=== PATIENT | female | born 2000 | race Caucasian/White ===

== ENCOUNTER 2022-06-20 10:10 | Outpatient (CLI) | payer MEDICAID, SELFPAY | END 2022-06-20 10:11 | disposition home or self-care (01) | LOC: FRMREF 06-23 14:25 | PROVIDERS: PCP Physician Assistant Medical; Visit Provider Physician Assistant Medical | DX: Z01.419 Encounter for gynecological examination (general) (routine) without abnormal findings (principal); Z13.6 Encounter for screening for cardiovascular disorders; Z11.3 Encounter for screening for infections with a predominantly sexual mode of transmission; Z13.29 Encounter for screening for other suspected endocrine disorder | CPT/HCPCS: 80053; 80061; 84443; 86592; 86703; 86706; 86803; 87340; 87491; 87591 ==

== ENCOUNTER 2022-07-07 14:05 | Emergency (ER) | payer MEDICAID, SELFPAY ==
[2022-07-07] VITALS (8 sets, daily range): BP systolic 117–148; BP diastolic 81–97; PULSE 78–97; RESP 16; TEMP 36.4; O2SAT 97–100; BMI 28.2
--- NOTE | 2022-07-07 14:44 | CRLHL7_ITS ---
For Patients: As a result of the Century Cures Act, medical imaging exams and procedure reports are released immediately into your electronic medical record. You may view this report before your referring provider. If you have questions, please contact your health care provider. INDICATION: Chest pain, elevated heart rate. TECHNIQUE: CT chest PE was acquired with 95 mL Isovue 370 IV contrast. Coronal and sagittal reformats were generated. COMPARISON: None. FINDINGS: Pulmonary arteries: The quality of enhancement of the pulmonary arteries is adequate. No filling defects to suggest pulmonary emboli. No findings of pulmonary artery hypertension. Thyroid: Unremarkable. Thoracic lymph nodes: No enlarged supraclavicular, mediastinal, hilar, or axillary lymph nodes. Mediastinum and esophagus: Unremarkable. Soft tissue density in the superior mediastinum is likely residual thymus. Heart and vasculature: Unremarkable. Lungs: Unremarkable. Pleura: Unremarkable. Chest wall: Unremarkable. Upper abdomen: No acute or significant findings. Bones: Unremarkable for age. IMPRESSION: 1. No pulmonary embolism. 2. Clear lungs. Please note that all CT scans at this facility use dose modulation, iterative reconstruction, and/or weight-based dosing when appropriate to reduce radiation dose to as low as reasonably achievable. Dictated by Marcos Colindres MD @ 07/07/2022 4:06:54 PM (Electronically Signed)
--- NOTE | 2022-07-07 14:46 | ED_ITS ---
HPI - General Adult General Time Seen by Provider: 14:47 Date Seen: 07/07/22 Chief complaint: Chest Pain Stated complaint: Chest pain elevated heartrate Time Seen by Provider: 07/07/22 14:37 Source: patient Mode of arrival: ambulatory Limitations: no limitations History of Present Illness HPI narrative: 21-year-old female who comes in today with chest pain and palpitations starting last night. She describes central pressure in her chest but she also says this feels ?hot? but not like heartburn. It is been fairly constant, does not seem worse when she lays down or sits up, does not seem worse with eating or drinking. She took Excedrin for this earlier with no improvement. She also feels like her heart is going fast and her watch, which has a heart rate sensor, indicates the heart rate is been around 100, patient says her normal heart rate in the 60s. She denies shortness of breath, cough, fever, chills, nausea, vomiting. She did notice some blood on the toilet paper on the outside the stool today, no abdominal pain. Related Data Home Medications Medication Instructions Recorded Confirmed No Known Home Medications 06/20/22 06/20/22 Allergies Allergy/AdvReac Type Severity Reaction Status Date / Time seasonal Allergy Mild Congestion, Uncoded 06/20/22 09:58 nasal drainage Review of Systems Status of ROS: Reports: 10 or more systems reviewed and unremarkable except as noted in History and below [facility] Surgical History (Updated 04/25/22 @ 10:52 by Pavel Carver) History of tonsillectomy Family History (Updated 04/25/22 @ 10:53 by Pavel Carver) Mother Depression Family/Other Depression Social History Smoking Status: Never smoker Do you use any of these nicotine containing products: None Second hand tobacco smoke exposure: No How often do you have a drink containing alcohol: 2-4 times a month How many standard drinks containing alcohol do you have on a typical day: 3 or 4 AUDIT-C Alcohol total score: 3 Non-prescribed substance use: marijuana (any form) service: No Exam Narrative: Exam Narrative: General: Well-developed and well-nourished, no acute distress Head: Atraumatic and normocephalic Eyes: Pupils are equal reactive, extraocular motions intact, conjunctiva clear ENT: External nose and ears are normal, posterior pharynx without erythema or exudate Neck: No midline cervical tenderness, full spontaneous range of motion the neck, trachea midline, no adenopathy Heart: Regular rate and rhythm no murmurs or thrills Lungs: Clear to auscultation bilaterally without wheezes or crackles Abdomen: Soft, nontender, nondistended with active bowel sounds Musculoskeletal: No tenderness, deformity, or edema Neurologic: Awake, alert, and oriented x3, no gross focal neurologic deficits, cranial nerves intact as tested Psych: Mood and affect are appropriate Skin: No rashes Const: Vital Signs, click to edit/add: Vital Signs - 24 hr 07/07/22 14:38 07/07/22 15:00 07/07/22 14:37 Temperature 97.6 F Pulse Rate [Pulse Oximeter] 95 86 97 Respiratory Rate 16 Blood Pressure [Le ft Upper Arm] 147/87 H 117/91 H 147/87 H Pulse Oximetry 100 100 100 Oxygen Delivery Me thod Room Air Room Air Room Air Course Course Hospital Course: Patient seen and examined, prior records reviewed. Differential diagnosis includes but not limited to electrolyte disturbance, dehydration, pericarditis, myocarditis, pulmonary embolism, pneumonia, pneumothorax, pneumomediastinum. Patient with substernal chest pain and fast heart rate. No lightheadedness or dizziness, no shortness of breath. On exam, heart rate is between 95 and 105 at rest, oxygen saturation 100%. Lungs are clear. Due to recent COVID and tachycardia, PE study is ordered. EKG and labs ordered to evaluate for pericarditis as well. Reevaluation(s) Reevaluation #1: EKG is reassuring, troponin is normal, pericarditis/myocarditis unlikely. CT scan is pending. Sign out to oncoming provider. If CT PE protocol is negative, patient can be discharged with outpatient follow-up. Time: 15:58 Vital Signs Vital signs: Initial Vital Signs Pulse Rate 97 07/07/22 14:37 Blood Pressure 147/87 H 07/07/22 14:37 Blood Pressure Mean 107 07/07/22 14:37 Blood Pressure Position Supine 07/07/22 14:37 Pulse Oximetry 100 07/07/22 14:37 Oxygen Delivery Method 07/07/22 14:37 Vital Signs Pulse Rate 97 07/07/22 14:37 Blood Pressure 147/87 H 07/07/22 14:37 Pulse Oximetry 100 07/07/22 14:37 Oxygen Delivery Method 07/07/22 14:37 Temperature 97.6 F 07/07/22 14:38 Pulse Rate 86 07/07/22 15:00 Respiratory Rate 16 07/07/22 14:38 Blood Pressure 117/91 H 07/07/22 15:00 Pulse Oximetry 100 07/07/22 15:00 Oxygen Delivery Method 07/07/22 15:00 Medical Decision Making Medical Records Medical records reviewed: Yes I reviewed the patient's medical records Lab Data Lab results reviewed: Yes I reviewed the patient's lab results Labs: Lab Results 07/07/22 07/07/22 07/07/22 Range/Units 15:02 15:02 15:02 WBC 10.94 (4.50-11.00) K/uL RBC 4.32 (4.00-5.20) m/uL Hgb 13.7 (12.0-16.0) gm/dL Hct 41.1 (33.0-51.0) % MCV 95 (80-100) fL MCH 32 (26-34) pg MCHC 33 (32-36) gm/dL RDW Coeff of Rayna 11.3 L (11.5-15.5) % Plt Count 362 (140-440) K/uL Neut % (Auto) 70.7 (42.0-72.0) % Lymph % (Auto) 19.4 L (20-44) % [place] % (Auto) 7.5 (0.0-11.0) % Eos % (Auto) 1.4 (0.0-7.0) % Baso % (Auto) 0.5 (0.0-3.0) % Neut # (Auto) 7.75 H (1.7-7.0) K/uL Lymph # (Auto) 2.10 (0.90-2.90) K/uL [place] # (Auto) 0.80 (0.00-0.90) K/UL Eos # (Auto) 0.15 (0.00-0.50) K/uL Baso # (Auto) 0.05 (0.00-0.30) K/uL Abs Immat Gran (auto) 0.05 (0.00-0.30) K/uL Sodium 139 (135-149) mmol/L Potassium 3.7 (3.6-5.1) mmol/L Chloride 103 (96-114) mmol/L Carbon Dioxide 25 (20-32) mmol/L BUN 9 (5-24) mg/dL Creatinine 0.6 (0.5-1.5) mg/dL Estimated Creat Clear 144.23 Estimated GFR 131 ml/min Glucose 110 (60-115) mg/dL Calcium 9.7 (8.4-10.6) mg/dL C-Reactive Protein < 0.5 L (0.5-1.0) mg/dL POC Troponin I 0.00 L (0.01-0.04) ng/ml Imaging Data CT scan - chest: Attestation: I have reviewed the pertinent imaging results. ECG Data Attestation: I personally reviewed and interpreted this ECG as follows: Prior ECG tracings: not available for review Interpretation: Performed at 2:48 p.m. demonstrates normal sinus rhythm rate 93, no acute ST elevations or depressions, normal intervals, normal axis, QTC 410, NH 146. No prior for comparison Discharge Plan Discharge Clinical Impression: Heart palpitations, Atypical chest pain Patient Disposition: Home, Self-Care Condition: Stable Instructions: Chest Pain (DC), Heart Palpitations (DC) Additional Instructions: Liquid diet for 24 hours. Avoid caffeinated beverages and alcohol. Follow-up with your primary care doctor this week. Activity Level: Activity as Tolerated Discharge Diet: Regular Prescriptions: No Action No Known Home Medications Follow Up/Referrals: Manuel Valero PA-C [Primary Care Provider] - Stand Alone Forms: [employer] Info Instructions
[2022-07-07] MEDS: 0.9 % SODIUM CHLORIDE 1000 ml 1,000 ML IV (15:04)
[2022-07-07] MEDS: KETOROLAC 15 MG/ML inj IVP (15:04)
--- NOTE | 2022-07-07 15:13 | ED.NURSE ---
care taken over, ekg done, pt on heart monitor, #20 sl L ac. ns bolus infusing. toradol iv given for cp 12/29. pt to ct.
[2022-07-07 15:15] LABS: Basophils Absolute Auto 0.05 K/uL (0.00-0.30); Basophils Percent Auto 0.5 % (0.0-3.0); Eosinophils Absolute Auto 0.15 K/uL (0.00-0.50); Eosinophils Percent Auto 1.4 % (0.0-7.0); Hematocrit 41.1 % (33.0-51.0); Hemoglobin* 13.7 gm/dL (12.0-16.0); Immature Granulocytes Abs Auto 0.05 K/uL (0.00-0.30); Lymphocytes Percent Auto 19.4 % (20-44); Mean Corpuscular HGB Conc 33 gm/dL (32-36); Mean Corpuscular Hemoglobin 32 pg (26-34); Mean Corpuscular Volume 95 fL (80-100); Monocytes Percent Auto 7.5 % (0.0-11.0); Neutrophils Absolute Auto 7.75 K/uL (1.7-7.0); Neutrophils Percent Auto 70.7 % (42.0-72.0); Platelet Count* 362 K/uL (140-440); RDW Coefficient of Variation % 11.3 % (11.5-15.5); Red Blood Count 4.32 m/uL (4.00-5.20); White Blood Count* 10.94 K/uL (4.50-11.00)
[2022-07-07 15:17] LABS: Slide Review Reflex No
[2022-07-07 15:37] LABS: Chloride* 103 mmol/L (96-114); Potassium* 3.7 mmol/L (3.6-5.1); Sodium* 139 mmol/L (135-149)
--- OUTSIDE RECORDS SUMMARY | 2022-07-07 15:38 | XMS_ITS | Clinical Summary ---
:2000 Author Organization [facility] [place] [address] Care Team Providers Name Role Phone Pcp, No Primary Care Provider Unavailable Allergies No known active allergies Medications No known medications Active Problems Problem Noted Date Unspecified asthma(493.90) Encounters Date Type Specialty Care Team Description 06/20/2022 Lab Requisition Manuel Valero PA-C from Last 3 Months Family History Medical History Relation Name Comments Heart Disease Maternal Grandmother atrial fibr illation Psychiatric illness Mother depression Thyroid Disease Mother Thyroid Disease Sister Relation Name Status Comments Father Alive Maternal Grandmother Mother Alive Sister Alive Social History Tobacco Use Types Packs/Day Years Used Date Never Smoker Smokeless Tobacco: Never Used Tobacco Cessation: Counseling Given: Yes Comments: no passive exposure Alcohol Use Standard Drinks/Week Comments No 0 (1 standard drink = 0.6 oz pure alcoho l) Sex Assigned at Date Recorded Not on file Obstetrics History Para Term AB IAB SAB Ectopic Multiple Living Live Births 0 0 0 0 0 0 0 0 0 0 Last Filed Vital Signs Vital Sign Reading Time Taken Comments Blood Pressure 123/81 08/17/2019 2:09 PM APPLICATION SERVICES MANAGER Pulse 86 08/17/2019 2:09 PM APPLICATION SERVICES MANAGER Temperature 37.4 ??C (99.4 ??F) 08/17/2019 2:09 PM APPLICATION SERVICES MANAGER Respiratory Rate 20 04/18/2010 4:34 PM CDT Oxygen Saturation 99% 08/17/2019 2:09 PM APPLICATION SERVICES MANAGER Inhaled Oxygen Concentration - - Weight 93.8 kg (206 lb 12.8 oz) 08/17/2019 2:09 PM APPLICATION SERVICES MANAGER Height 169.9 cm (5' 6.89) 08/17/2019 2:09 PM APPLICATION SERVICES MANAGER Body Mass Index 32.5 08/17/2019 2:09 PM APPLICATION SERVICES MANAGER Plan of Treatment Health Maintenance Due Date Last Done Comments COVID-19 vaccine series (#1) 06/30/2001 HPV series for age 9-26 (1 - 12/30/2011 2-dose series) Tdap 12/30/2011 Hepatitis C screening for age 0412/29/2018 18-79 BMI (ht and wt on same day) 08/17/2020 08/17/2019 for age 18+ Depression screening for age 1108/17/2020 08/17/2019, 12+ 10/29/2016 Tetanus booster 2020 Pap test for age 21-65 2021 Influenza for age 9-49 05/22/2022 Meningococcal series for age Aged Out No longer eligible based 08-11 on patient's age to complete this to pic Procedures Procedure Name Priority Date/Time Associated Diagnosis Comme nts LAB TRACKING EVENT Routine 06/20/2022 10:10 AM CDT from Last 3 Months Results LAB TRACKING EVENT (06/20/2022 10:10 AM CDT) Specimen Anatomical Collection Method Collection Time Receive d Time (Source) Location / / Volume Laterality Other (Other) Client Collect / 06/20/2022 10:10 2021 5:49 Unknown AM CDT PM CDT Manuel Valero PA-C LAB BILL ONLY Performing Organization Address City/State/ZIP Code Phon e Number [facility] [address] [place] [address] [facility] LABORATORY from Last 3 Months Insurance Payer Benefit Plan / Subscriber ID Effective Dates Phone Addre ss Type Group [employer]ICA MED[employer] IFB [id number] 2016-Present [address] [address] [place] [phone] Care Teams Beauty Culturist Relationship Specialty Start Date End Date Pcp, No PCP - General 08/27/18 .
[2022-07-07 15:40] LABS: Creatinine* 0.6 mg/dL (0.5-1.5); Est. Creatinine Clearance* 144.23; Estimated Glomerular Filt Rate 131 ml/min
[2022-07-07 15:41] LABS: Blood Urea Nitrogen* 9 mg/dL (5-24); Calcium* 9.7 mg/dL (8.4-10.6); Carbon Dioxide* 25 mmol/L (20-32); Glucose* 110 mg/dL (60-115)
[2022-07-07 15:56] LABS: C Reactive Protein* < 0.5 mg/dL (0.5-1.0)
== END 2022-07-07 17:19 | disposition home or self-care (01) ==
PROVIDERS: Family Medicine; Emergency Provider Emergency Medicine Emergency Medical Services; PCP Physician Assistant Medical
DX: R07.89 Other chest pain (principal); R00.2 Palpitations; Z86.16 Personal history of COVID-19
CPT/HCPCS: 36415; 71260; 80048; 85025; 86140; 93005; 96360; 96361; 96374; 99284; J1885; J7030; Q9967

== ENCOUNTER 2023-07-24 14:39 | Outpatient (CLI) | payer MEDICAID, SELFPAY ==
[2023-07-24 23:12] LABS: Chlamydia DNA Amplified* NOT DETECTED (No Detected); GC DNA Amplified* NOT DETECTED (No Detected)
== END 2023-07-24 14:40 | disposition home or self-care (01) ==
LOC: FRMREF 14:39
PROVIDERS: PCP Physician Assistant Medical; Visit Provider Physician Assistant Medical
DX: Z00.00 Encounter for general adult medical examination without abnormal findings (principal); Z11.3 Encounter for screening for infections with a predominantly sexual mode of transmission
CPT/HCPCS: 87491; 87591

== ENCOUNTER 2024-11-22 09:47 | Outpatient (CLI) | payer BC, SELFPAY ==
[2024-11-30 14:04] LABS: Pap Test Reviewed by Path Done
== END 2024-11-22 09:48 | disposition home or self-care (01) ==
LOC: FRMREF 09:47
PROVIDERS: PCP Physician Assistant Medical; Visit Provider Physician Assistant Medical
DX: N92.6 Irregular menstruation, unspecified (principal); Z12.4 Encounter for screening for malignant neoplasm of cervix
CPT/HCPCS: 87491; 87591; 87624; 87625; 88141; 88142